=== PATIENT | male | born 1985 | race Caucasian/White ===

== ENCOUNTER → 2022-03-28 11:01 | Outpatient (CLI) | payer OTHER, SELFPAY ==
--- NOTE | ~2022-03-28 | XR_ITS ---
Corrected Report Correction to Ordering Provider 03/29/2022 [facility] This report was recreated on 03/29/2022. Original report was signed by Dru Green M.D. on 03/28/2022 12:42 POWER SCREWDRIVER OPERATOR. Lumbosacral Spine: AP and lateral views Clinical History: Pain Findings: The normal lordotic curve is maintained. The vertebral bodies and posterior elements are intact. The intervertebral disc spaces are preserved. The sacroiliac joints are normally outlined. Impression: No significant abnormality. Reviewed, dictated and finalized at location M. R SCREWDRIVER OPERATOR MTDD Impression: No significant abnormality.
== END ==
PROVIDERS: Visit Provider Nurse Practitioner Family
DX: M54.59 Other low back pain (principal)
CPT/HCPCS: 72100